=== PATIENT | male | born 1955 ===

== ENCOUNTER 2017-11-16 12:32 | Inpatient (IN) | payer OTHER ==
[2017-11-16] MEDS ORDERED: Sodium Chloride 0.9% 1,000 ML IV STA (13:27)
[2017-11-16] MEDS ORDERED: Vancomycin 1 gm/NS 200 ml 1 GM/200 ML BAG IVPB STA (13:28)
--- NOTE | 2017-11-16 13:47 | RAD ---
Date of service: 11/16/2017 HISTORY: cellulitis COMPARISON: No prior. FINDINGS: LUNGS: No active pulmonary disease. PLEURA: No significant pleural effusion identified, no pneumothorax apparent. CARDIOVASCULAR: Prior sternotomy with sternal wires and surgical clips in place. Cardiomediastinal silhouette prominent. OSSEOUS STRUCTURES: Degenerative changes. VISUALIZED UPPER ABDOMEN: Normal. OTHER FINDINGS: None. IMPRESSION: No active disease.
[2017-11-16 13:51] LABS: BASO % 0.3 % (0.0-2.0); EOS # 0.1 K/uL (0.0-0.7); EOS % 1.5 % (0.0-4.0); HEMOGLOBIN 15.6 g/dL (12.0-18.0); LYMPH % 21.6 % (20.0-40.0); MEAN CELL VOLUME 89.7 fL (80.0-94.0); MEAN CORPUSCULAR HEMOGLOBIN 30.9 pg (27.0-31.0); MEAN CORPUSCULAR HGB CONC 34.5 g/dL (33.0-37.0); MONO # 0.7 K/uL (0.0-0.8); MONO % 7.2 % (0.0-10.0); NEUT # 6.3 K/uL (1.8-7.0); NEUT % 69.4 % (50.0-75.0); RBC 5.06 Mil/uL (4.40-5.90); RED CELL DISTRIBUTION WIDTH 12.8 % (11.5-14.5)
[2017-11-16] MEDS ORDERED: Sodium Chloride 0.9% 1,000 ML ONE (14:00)
--- NOTE | 2017-11-16 14:07 | C.PDOC ---
History Of Present Illness 62 y/o M c PMHx HTN, HLD, DM, CAD s/p CABG p/w cellulitis x 6 days. Patient notes a rash on his L leg that has been straking up towards the knee. He states it is painful to touch and warm. Denies fever, chills, dyspnea, vomiting. Was admitted at [facility] for cellulitis but left to come here instead. PMD Jorge Estevez Time Seen by Provider: 11/16/17 13:12 Chief Complaint (Nursing): Lower Extremity Problem/Injury Past Medical History Vital Signs: Last Vital Signs Temp 98 F 11/16/17 12:41 Pulse 87 11/16/17 12:41 Resp 18 11/16/17 12:41 BP 125/87 11/16/17 12:41 Pulse Ox 97 11/16/17 15:11 - Medical History PMH: HTN, Hypercholesterolemia Surgical History: Appendectomy Family History: States: No Known Family Hx - Social History Hx Alcohol Use: Yes Hx Substance Use: No - Immunization History Hx Tetanus Toxoid Vaccination: No Hx Influenza Vaccination: Yes Hx Pneumococcal Vaccination: No Review Of Systems Except As Marked, All Systems Reviewed And Found Negative. Constitutional: Negative for: Fever Respiratory: Negative for: Shortness of Breath Physical Exam - Physical Exam Additional Physical Exam Comments: Constitutional: No acute distress. Head: Normocephalic. Atraumatic. Eyes: PERRL. ENT: Moist mucous membranes. Neck: Supple. Cardiovascular: Regular rate. Radial pulse 2+ bilaterally. Chest: No tenderness. Respiratory: Clear to auscultation bilaterally. GI: Soft. Nontender. Nondistended. Back: No CVA tenderness. Musculoskeletal: No tenderness or swelling of extremities. Skin: Erythematous, indurated, warm rash on dorsal L foot extending up medial lower leg towards knee, tender to touch. Neurologic: Alert, no focal deficit. ED Course And Treatment - Laboratory Results Result Diagrams: 11/16/17 13:47 11/16/17 14:28 O2 Sat by Pulse Oximetry: 97 Medical Decision Making Medical Decision Making: Vancomycin administered. Dr. Díaz accepts patient to his service. EKG NSR 70 bpm, no ST/T wave changes. CXR no active disease. Disposition - Disposition Disposition: HOSPITALIZED Disposition Time: 15:00 Condition: GUARDED Forms: [employer] ([place]) - Clinical Impression Clinical Impression: Cellulitis
[2017-11-16 14:45] LABS: ALB/GLOB RATIO 1.4 (1.0-2.1); ALBUMIN 3.8 g/dL (3.5-5.0); ALT/SGPT 28 U/L (21-72); AST/SGOT 12 U/L (17-59); BLOOD UREA NITROGEN 13 mg/dL (9-20); CALCIUM 7.7 mg/dl (8.6-10.4); GFR NON-AFRICAN AMERICAN > 60
--- NOTE | 2017-11-16 15:48 | CP.PCM.PN ---
Subjective - Date & Time of Evaluation Date of Evaluation: 11/16/17 Time of Evaluation: 15:39 - Subjective Subjective: Patient is a 62 year old male with past medical history of HTN, HLD, DM, CAD s/ p CABG who presents to the ER with complaint of painful and erythematous left lower extremity. Patient reports that two weeks ago his girlfriend cut the toenails on his left foot and that swelling began after. Patient reports he initially went to the [facility] ER on 11/11/17 and was discharged home with PO antibiotics. He reports going back to [facility] on 11/13/17 and was admitted to the hospital for IV antibiotics. Patient states he walked out of the hospital on Thursday11/15/17 due to issues with nursing staff regarding an IV site in right antecubital fossa that was uncomfortable. Patient states he went to see pet store merchandiser Dr. Hanley today but was not seen in the office and instead directed to the ER here. Patient reports improvement in erythema and pain since starting IV antibiotics but that dorsum of foot is still painful. PMD: Dr. Watson Estevez [facility]: Dr. Fitz Rucker PMHx: HTN, HLD, DM, CAD Meds: metformin 850 BID, metoprolol succinate 25mg daily, aspirin 81mg, enalapril 10mg daily, simvastatin 20mg HS, losartan/HCTZ 50-12.5 daily PSHx: CABG x 4 vessels 08/2013 at [facility], left lower extremity vessel harvest, appendectomy FamHx: Mother and father of stroke Social Hx: never smoked tobacco; drinks 8 oz rufino daily- has stopped numerous occasions, denies seizure or tremors with alcohol cessation; no drugs; lives alone; currently in process of divorce; formerly worked in education research Allergies: denies If patient cannot make medical decisions, he would like his Sydni to be contacted: [phone] to let her decide about resuscitation Objective - Vital Signs/Intake and Output Vital Signs (last 24 hours): Temp Pulse Resp BP Pulse Ox 98 F 87 18 125/87 97 11/16/17 12:41 11/16/17 12:41 11/16/17 12:41 11/16/17 12:41 11/16/17 15:25 - Labs Labs: 11/16/17 13:47 11/16/17 14:28 - Constitutional Appears: Non-toxic, No Acute Distress - Head Exam Head Exam: ATRAUMATIC, NORMOCEPHALIC - Eye Exam Eye Exam: EOMI - ENT Exam ENT Exam: Mucous Membranes Moist - Neck Exam Neck Exam: Full ROM. absent: Lymphadenopathy - Respiratory Exam Respiratory Exam: Clear to Ausculation Bilateral, NORMAL BREATHING PATTERN. absent: Rales, Rhonchi, Wheezes - Cardiovascular Exam Cardiovascular Exam: +S1, +S2 Additional comments: well-healed sternotomy scar - GI/Abdominal Exam GI & Abdominal Exam: Soft, Normal Bowel Sounds. absent: Distended, Firm, Guarding, Tenderness - Extremities Exam Additional comments: left lower extremity with area of receding erythema demarcated by pen that extends from foot to infrapatellar region palpable DP pulse dorsum of felt washing machine tender on palpation, no calf tenderness intact sensation to toes, no lesions thickened toenails noted right antecubital fossa with mild erythema at former IV site - Neurological Exam Neurological Exam: Alert, Awake - Psychiatric Exam Psychiatric exam: Normal Affect - Skin Skin Exam: Erythema (left lower extremity), Warm Assessment and Plan - Assessment and Plan (Free Text) Assessment: Left lower extremity cellulitis vancomycin 1g q12h IVPB zosyn 3.375g q6h IVPB continue to monitor tylenol 650 q6prn pain F/U blood culture Diabetes continue home med metformin 850mg PO BID accucheck ACHS diabetic diet hypoglycemia protocol F/U A1c HTN continue home med losartan 50mg PO daily continue home med HCTZ 12.5mg PO daily continue home med metoprolol succinate 25mg PO daily continue home med enalapril 10mg PO daily continue to monitor HLD continue equivalent of patient's home med, crestor 5mg CAD continue aspirin 81mg PO daily Prophylactic measure heparin 5000u SC q8h Management as per Dr. Díaz
[2017-11-16] MEDS ORDERED: Glucagon Recombinant 1 mg Inj IM PRN (15:59)
[2017-11-16] MEDS ORDERED: Dextrose 50% SYRINGE Inj (50 ml) IVP PRN (15:59)
[2017-11-16] MEDS: Piperacill/Tazo 3.375gm in Dex 3.375 GM/50 ML BAG IVPB SCH ×2 (16:55→21:30)
[2017-11-16 17:00] VITALS: RESP 20
[2017-11-17] MEDS: Piperacill/Tazo 3.375gm in Dex 3.375 GM/50 ML BAG IVPB SCH ×4 (04:06→22:00)
[2017-11-17 07:35] LABS: BASO % 0.4 % (0.0-2.0); EOS # 0.1 K/uL (0.0-0.7); EOS % 1.7 % (0.0-4.0); HEMOGLOBIN 13.8 g/dL (12.0-18.0); LYMPH # 1.8 K/uL (1.0-4.3); LYMPH % 25.1 % (20.0-40.0); MEAN CELL VOLUME 89.2 fL (80.0-94.0); MEAN CORPUSCULAR HEMOGLOBIN 31.5 pg (27.0-31.0); MEAN CORPUSCULAR HGB CONC 35.3 g/dL (33.0-37.0); MONO # 0.6 K/uL (0.0-0.8); MONO % 7.7 % (0.0-10.0); NEUT # 4.7 K/uL (1.8-7.0); NEUT % 65.1 % (50.0-75.0); RBC 4.39 Mil/uL (4.40-5.90); RED CELL DISTRIBUTION WIDTH 12.7 % (11.5-14.5); WHITE BLOOD COUNT 7.2 K/uL (4.8-10.8)
[2017-11-17 07:45] LABS: ALB/GLOB RATIO 1.2 (1.0-2.1); ALBUMIN 4.1 g/dL (3.5-5.0); ALT/SGPT 25 U/L (21-72); AST/SGOT 19 U/L (17-59); BLOOD UREA NITROGEN 15 mg/dL (9-20); CALCIUM 9.4 mg/dl (8.6-10.4); GFR NON-AFRICAN AMERICAN > 60
[2017-11-17] MEDS: Metoprolol Succinate 25 mg XL Tab PO SCH (09:31)
--- NOTE | 2017-11-17 10:15 | CP.PCM.PN ---
Subjective - Date & Time of Evaluation Date of Evaluation: 11/17/17 Time of Evaluation: 10:11 - Subjective Subjective: Medicine progress note for Dr. Díaz's service Patient seen and examined. Patient resting comfortably in bed. Patient reports decreased pain in left lower extremity, however dorsum of foot is wafer abrading machine tender. Objective - Vital Signs/Intake and Output Vital Signs (last 24 hours): Temp Pulse Resp BP Pulse Ox 98 F 73 20 138/84 96 11/17/17 07:35 11/17/17 07:35 11/17/17 07:35 11/17/17 09:30 11/17/17 07:35 Intake and Output: 11/17/17 11/17/17 06:59 18:59 Intake Total 400 Balance 400 - Medications Medications: Current Medications Acetaminophen (Tylenol 325mg Tab) 650 mg PO Q6 PRN PRN Reason: Pain, Mild (1-3) Aspirin (Aspirin Chewable) 81 mg PO DAILY [facility] Last Admin: 11/17/17 09:30 Dose: 81 mg Dextrose (Dextrose 50% Inj) 0 ml IVP .STAT PRN; Protocol PRN Reason: Hypoglycemia Protocol Dextrose (Glutose 15) 0 gm PO .ONCE PRN; Protocol PRN Reason: Hypoglycemia Protocol Enalapril Maleate (Vasotec) 10 mg PO DAILY [facility] Last Admin: 11/17/17 09:30 Dose: 10 mg Glucagon (Glucagen Diagnostic Kit) 0 mg IM .STAT PRN; Protocol PRN Reason: Hypoglycemia Protocol Heparin Sodium (Porcine) (Heparin) 5,000 units SC Q8 [facility] Last Admin: 11/17/17 05:41 Dose: 5,000 units Hydrochlorothiazide (Microzide) 12.5 mg PO DAILY [facility] Last Admin: 11/17/17 09:32 Dose: 12.5 mg Dextrose (Dextrose 5% In Water 1000 Ml) 1,000 mls @ 0 mls/hr IV .Q0M PRN; Protocol; Per Protocol PRN Reason: Hypoglycemia Protocol Piperacillin Sod/Tazobactam Sod (Zosyn 3.375 Gm Iv Premix) 3.375 gm in 50 mls @ 100 mls/hr IVPB Q6H [facility] PRN Reason: Protocol Last Admin: 11/17/17 09:33 Dose: 100 mls/hr Vancomycin HCl 500 mg/ Sodium (Chloride) 100 mls @ 100 mls/hr IVPB Q12H [facility] PRN Reason: Protocol Stop: 11/22/17 02:01 Last Admin: 11/17/17 01:26 Dose: 100 mls/hr Losartan Potassium (Cozaar) 50 mg PO DAILY [facility] Last Admin: 11/17/17 09:32 Dose: 50 mg Metformin HCl (Glucophage) 850 mg PO BID [facility] Last Admin: 11/17/17 09:32 Dose: 850 mg Metoprolol Succinate (Toprol Xl) 25 mg PO DAILY [facility] Last Admin: 11/17/17 09:31 Dose: 25 mg Pneumococcal Polyvalent Vaccine (Pneumovax 23 Vaccine) 0.5 ml IM .ONCE ONE Stop: 11/18/17 10:01 Rosuvastatin Calcium (Crestor) 5 mg PO [facility] Last Admin: 11/16/17 21:28 Dose: 5 mg - Labs Labs: 11/17/17 07:24 11/17/17 07:24 - Constitutional Appears: No Acute Distress - Head Exam Head Exam: ATRAUMATIC, NORMOCEPHALIC - Eye Exam Eye Exam: EOMI - ENT Exam ENT Exam: Mucous Membranes Moist - Respiratory Exam Respiratory Exam: Clear to Ausculation Bilateral, NORMAL BREATHING PATTERN. absent: Rales, Rhonchi, Wheezes - Cardiovascular Exam Cardiovascular Exam: +S1, +S2 - GI/Abdominal Exam GI & Abdominal Exam: Soft, Normal Bowel Sounds. absent: Tenderness - Extremities Exam Additional comments: left lower extremity with area of receding erythema demarcated by pen that extends from foot to medial infrapatellar region palpable DP pulse dorsum of force variation equipment tender on palpation, no calf tenderness well-healed scar from CABG vessel harvest - Neurological Exam Neurological Exam: Alert, Awake - Psychiatric Exam Psychiatric exam: Normal Affect - Skin Skin Exam: Warm Assessment and Plan - Assessment and Plan (Free Text) Assessment: Left lower extremity cellulitis vancomycin 1g q12h IVPB zosyn 3.375g q6h IVPB continue to monitor tylenol 650 q6prn pain F/U blood culture Diabetes continue home med metformin 850mg PO BID accucheck ACHS diabetic diet hypoglycemia protocol A1c 8.5 HTN continue home med losartan 50mg PO daily continue home med HCTZ 12.5mg PO daily continue home med metoprolol succinate 25mg PO daily continue home med enalapril 10mg PO daily continue to monitor HLD continue equivalent of patient's home med, crestor 5mg CAD continue aspirin 81mg PO daily Prophylactic measure heparin 5000u SC q8h PT eval Management as per Dr. Díaz
[2017-11-18] MEDS: Piperacill/Tazo 3.375gm in Dex 3.375 GM/50 ML BAG IVPB SCH ×2 (03:32→10:06)
[2017-11-18 06:27] LABS: BASO # 0.1 K/uL (0.0-0.2); BASO % 1.2 % (0.0-2.0); EOS # 0.1 K/uL (0.0-0.7); EOS % 1.4 % (0.0-4.0); LYMPH # 2.2 K/uL (1.0-4.3); LYMPH % 23.3 % (20.0-40.0); MEAN CELL VOLUME 87.9 fL (80.0-94.0); MEAN CORPUSCULAR HEMOGLOBIN 31.5 pg (27.0-31.0); MEAN CORPUSCULAR HGB CONC 35.8 g/dL (33.0-37.0); MEAN PLATELET VOLUME 9.2 fL (7.2-11.7); MONO # 0.6 K/uL (0.0-0.8); MONO % 6.7 % (0.0-10.0); NEUT # 6.5 K/uL (1.8-7.0); NEUT % 67.4 % (50.0-75.0); NRBC % 0.1 % (0.0-2.0); RBC 4.45 Mil/uL (4.40-5.90); RED CELL DISTRIBUTION WIDTH 12.8 % (11.5-14.5); WHITE BLOOD COUNT 9.6 K/uL (4.8-10.8)
[2017-11-18 06:51] LABS: ALB/GLOB RATIO 1.3 (1.0-2.1); ALBUMIN 4.3 g/dL (3.5-5.0); ALT/SGPT 24 U/L (21-72); AST/SGOT 27 U/L (17-59); BLOOD UREA NITROGEN 17 mg/dL (9-20); CALCIUM 9.4 mg/dl (8.6-10.4); GFR NON-AFRICAN AMERICAN > 60
[2017-11-18 07:53] VITALS: PULSE 82; TEMP 97.2; O2SAT 96
--- NOTE | 2017-11-18 08:37 | HP ---
Copied To: Robinson Díaz MD Attending MD: Robinson Díaz MD HISTORY OF PRESENT ILLNESS: A 62-year-old male, admitted to the hospital with complaint of weakness, fatigue, tiredness, pain in the left leg. The patient came to the ER, advised admission. PHYSICAL EXAMINATION: GENERAL: The patient is awake, alert, and oriented. VITAL SIGNS: Temperature 98, pulse 90. HEENT: Within normal limits. NECK: Supple. CHEST: Symmetrical. HEART: Regular. ABDOMEN: Soft. EXTREMITIES: No edema. ASSESSMENT AND PLAN: The patient suffers from cellulitis of left lower extremity. Continue intravenous antibiotics. IV fluid. Supportive care. Robinson Díaz MD
[2017-11-18] MEDS ORDERED: Pneumococcal 23-Valent Vaccine IM ONE (10:00)
[2017-11-18] MEDS: Metoprolol Succinate 25 mg XL Tab PO SCH (10:06)
[2017-11-18 10:09] VITALS: BP 144/70
--- NOTE | 2017-11-18 11:16 | CP.PCM.PN ---
Subjective - Date & Time of Evaluation Date of Evaluation: 11/18/17 Time of Evaluation: 09:10 - Subjective Subjective: Medicine progress note for Dr. Díaz's service Patient seen and examined. Patient walking well in hallways and states tenderness in left foot much improved. Patient denies fevers or chills and feels well. Objective - Vital Signs/Intake and Output Vital Signs (last 24 hours): Temp Pulse Resp BP Pulse Ox 97.2 F L 82 20 144/70 96 11/18/17 07:52 11/18/17 07:52 11/18/17 07:52 11/18/17 10:05 11/18/17 07:52 Intake and Output: 11/18/17 11/18/17 06:59 18:59 Intake Total 500 Balance 500 - Medications Medications: Current Medications Acetaminophen (Tylenol 325mg Tab) 650 mg PO Q6 PRN PRN Reason: Pain, Mild (1-3) Aspirin (Aspirin Chewable) 81 mg PO DAILY [facility] Last Admin: 11/18/17 10:05 Dose: 81 mg Dextrose (Dextrose 50% Inj) 0 ml IVP .STAT PRN; Protocol PRN Reason: Hypoglycemia Protocol Dextrose (Glutose 15) 0 gm PO .ONCE PRN; Protocol PRN Reason: Hypoglycemia Protocol Enalapril Maleate (Vasotec) 10 mg PO DAILY [facility] Last Admin: 11/18/17 10:05 Dose: 10 mg Glucagon (Glucagen Diagnostic Kit) 0 mg IM .STAT PRN; Protocol PRN Reason: Hypoglycemia Protocol Heparin Sodium (Porcine) (Heparin) 5,000 units SC Q8 [facility] Last Admin: 11/18/17 06:01 Dose: 5,000 units Hydrochlorothiazide (Microzide) 12.5 mg PO DAILY [facility] Last Admin: 11/18/17 10:06 Dose: 12.5 mg Dextrose (Dextrose 5% In Water 1000 Ml) 1,000 mls @ 0 mls/hr IV .Q0M PRN; Protocol; Per Protocol PRN Reason: Hypoglycemia Protocol Piperacillin Sod/Tazobactam Sod (Zosyn 3.375 Gm Iv Premix) 3.375 gm in 50 mls @ 100 mls/hr IVPB Q6H [facility] PRN Reason: Protocol Last Admin: 11/18/17 10:06 Dose: 100 mls/hr Vancomycin HCl 500 mg/ Sodium (Chloride) 100 mls @ 100 mls/hr IVPB Q12H [facility] PRN Reason: Protocol Stop: 11/22/17 02:01 Last Admin: 11/18/17 02:07 Dose: 100 mls/hr Losartan Potassium (Cozaar) 50 mg PO DAILY [facility] Last Admin: 11/18/17 10:06 Dose: 50 mg Metformin HCl (Glucophage) 850 mg PO BID [facility] Last Admin: 11/18/17 10:05 Dose: 850 mg Metoprolol Succinate (Toprol Xl) 25 mg PO DAILY [facility] Last Admin: 11/18/17 10:06 Dose: 25 mg Rosuvastatin Calcium (Crestor) 5 mg PO HS [facility] Last Admin: 11/17/17 21:59 Dose: 5 mg - Labs Labs: 11/18/17 06:22 11/18/17 06:22 - Constitutional Appears: Non-toxic, No Acute Distress - Head Exam Head Exam: ATRAUMATIC, NORMOCEPHALIC - Eye Exam Eye Exam: EOMI - ENT Exam ENT Exam: Mucous Membranes Moist - Respiratory Exam Respiratory Exam: Clear to Ausculation Bilateral, NORMAL BREATHING PATTERN - Cardiovascular Exam Cardiovascular Exam: +S1, +S2 - GI/Abdominal Exam GI & Abdominal Exam: Soft, Normal Bowel Sounds. absent: Tenderness - Extremities Exam Additional comments: left lower extremity with minor erythema, primarily located on dorsum of left foot, non-tender on palpation - Neurological Exam Neurological Exam: Alert, Awake - Psychiatric Exam Psychiatric exam: Normal Affect - Skin Skin Exam: Warm Assessment and Plan - Assessment and Plan (Free Text) Assessment: Left lower extremity cellulitis vancomycin 1g q12h IVPB zosyn 3.375g q6h IVPB continue to monitor tylenol 650 q6prn pain blood culture negative x 48 h will discharge on Bactrim DS BID x 7 days Diabetes continue home med metformin 850mg PO BID accucheck ACHS diabetic diet hypoglycemia protocol A1c 8.5 HTN continue home med losartan 50mg PO daily continue home med HCTZ 12.5mg PO daily continue home med metoprolol succinate 25mg PO daily continue home med enalapril 10mg PO daily continue to monitor HLD continue equivalent of patient's home med, crestor 5mg CAD continue aspirin 81mg PO daily Prophylactic measure heparin 5000u SC q8h PT eval Management as per Dr. Díaz Patient is stable for discharge home per Dr. Díaz. Patient is to follow up with his primary medical doctor, Dr. Estevez, within the next week following discharge. Patient is to resume all home medications. Patient is to take antibiotic Bactrim DS one tablet by mouth every 12 hours for total of 7 days. Patient is to return to the ER if symptoms reoccur or worsen. This was explained to the patient who understands and agrees.
--- NOTE | 2017-11-18 14:21 | CARD ---
APPROVED REPORT Date of service: 11/16/2017 EKG Measurement Heart [id number] <Conclusion> Normal sinus rhythm Normal ECG
== END 2017-11-18 13:00 | disposition home or self-care (01) | DRG 278 ==
LOC: C.ER 12:32 → C.9E 15:00 → C.3T 16:10
PROVIDERS: ADMIT Internal Medicine Pulmonary Disease; ATTEND Internal Medicine Pulmonary Disease
DX: L03.116 Cellulitis of left lower limb (principal); E11.9 Type 2 diabetes mellitus without complications; I10 Essential (primary) hypertension; I25.10 Atherosclerotic heart disease of native coronary artery without angina pectoris; E78.00 Pure hypercholesterolemia, unspecified; E78.5 Hyperlipidemia, unspecified; Z95.1 Presence of aortocoronary bypass graft; Z79.84 Long term (current) use of oral hypoglycemic drugs; Z79.82 Long term (current) use of aspirin

== ENCOUNTER 2018-08-02 12:51 | Outpatient (CLI) | payer OTHER | END 2018-08-02 12:52 | disposition home or self-care (01) | LOC: C.MRIC 12:52 | DX: G46.3 Brain stem stroke syndrome (principal) ==